=== PATIENT | male | born 1945 | race Caucasian/White ===

== ENCOUNTER → 2016-12-02 | Outpatient (CLI) | payer MEDICARE, BC ==
[~2016-12-02] MED LIST: AMLO10TA2 PO; ASPI-730 PO; AZIT250T PO; BENA10TA3 PO; CALC-1138 PO; CLOP75TA19 PO; FLUT16SP NAS; HYDR-2164 PO; HYDR-4246 PO; INSU100I21 SQ; INSU100V13 SQ; INSU100V20 SQ; IOHEXOL 300 MG/ML 75ml INJECTION ONE; METF-206 PO; NORMAL SALINE 100 ML ONE; NORT50CA PO; POTA10CA32 PO; RANI150T7 PO; SALINE FLUSH 10ml SYRINGE ONE; SILD100T PO; [UNRECOGNIZED DRUG - CODE] PO; [UNRECOGNIZED DRUG - CODE] SQ
[2016-12-02 13:10] LABS: BASOPHILS % (AUTO) 0.4 % (0-2); EOSINOPHILS # (AUTO) 0.2 T/MM3 (0-0.5); EOSINOPHILS % (AUTO) 1.4 % (0-4); HCT - HEMATOCRIT 45.2 % (41-53); HGB - HEMOGLOBIN 16.2 GM/DL (13.5-17.5); IMMATURE GRANULOCYTE # (AUTO) 0.04 T/MM3 (0.00-0.03); IMMATURE GRANULOCYTE % (AUTO) 0.4 % (0.0-0.5); LYMPHOCYTES # (AUTO) 2.9 T/MM3 (1-4.8); LYMPHOCYTES % (AUTO) 25.7 % (23-45); MEAN CORPUSCULAR HGB 31.8 UUG (26-34); MEAN CORPUSCULAR HGB CONC(MCHC 35.8 GM/DL (31-37); MEAN CORPUSCULAR VOLUME 88.8 UM3 (80-100); MEAN PLATELET VOLUME 10.6 UM3 (9.4-12.4); MONOCYTES # (AUTO) 1.1 T/MM3 (0-0.8); MONOCYTES % (AUTO) 9.8 % (0-9.0); NEUTROPHILS #(AUTO)-ABSOLUTE 6.9 T/MM3 (1.8-7.7); NEUTROPHILS % (AUTO) 62.3 % (33-66); RED BLOOD COUNT 5.09 M/MM3 (4.50-5.90); WBC - WHITE BLOOD COUNT 11.1 T/MM3 (4.5-11.0)
[2016-12-02 13:21] LABS: ALBUMIN/GLOBULIN RATIO 1.6 RATIO (1.1-2.2); ALKALINE PHOSPHATASE 62 U/L (38-126); ALT (SGPT) 31 U/L (21-72); ANION GAP 10 MEQ/L (5-15); AST (SGOT) 19 U/L (17-59); BUN/CREATININE RATIO 13 RATIO (6-26); CALCIUM 9.3 MG/DL (8.4-10.2); CHLORIDE 97 MEQ/L (98-107); CO2 - CARBON DIOXIDE 27 MEQ/L (22-30); CREATININE 0.7 MG/DL (0.8-1.5); GLOMERULAR FILTRATION RATE 111; GLUCOSE 239 MG/DL (75-110); POTASSIUM 4.2 MEQ/L (3.6-5); SODIUM 134 MEQ/L (134-144); TOTAL PROTEIN 6.5 G/DL (6.3-8.2)
--- NOTE | 2016-12-02 14:23 | DI ---
Indication: ITS.REASON: N40.1 BPH; R10.2 PELVIC PAIN PROCEDURE: US BLADDER: Encounter: Initial Comparison: CT abdomen and pelvis from today Technique: Grayscale and color Doppler sonographic imaging of the bladder was performed both before and after voiding. Findings/ Impression: The bladder appears sonographically normal without debris or mass. Prevoid bladder volume was 95.1 mL. Post void residual volume of 22.7 mL. Ureteral jets were not visible by ultrasound. .
--- NOTE | 2016-12-02 14:29 | DI ---
Indication: ITS.REASON: R10.2 PELVIC PAIN; N40.1 BPH PROCEDURE: CT ABD/PELVIS W/O CONTRAST: Encounter: Initial Comparison: None Technique: Axial CT images were performed through the abdomen and pelvis without intravenous contrast. Coronal and sagittal two-dimensional reformats. Automated Exposure Control and Iterative Reconstruction dose reducing techniques were utilized. Findings: 9 mm noncalcified nodule in the right lower lobe. The unenhanced contours of the liver are unremarkable. The gallbladder, spleen, pancreas and adrenal glands are within normal limits. The kidneys are normal. No renal or ureteral stone disease. The bladder is normal. Prostate and rectum are unremarkable. Moderate sized fat-containing left inguinal hernia extending into the left hemiscrotum. No free fluid. Sigmoid diverticulosis with some questionable mild stranding adjacent to the proximal sigmoid. No free air or abscess formation. No evidence of a bowel obstruction. Inflammation in the left abdominal subcutaneous fat could relate to injection granulomas. Bone windows show no lytic or blastic osseous lesions. Impression: 1. Subtle findings for possible early or mild sigmoid diverticulitis. 2. 9 mm right lower lobe pulmonary nodule. Recommend comparison with any available prior CT scans including the lung bases to evaluate for stability. If comparisons are unavailable follow-up noncontrast chest CT is recommended in three months to evaluate for stability. Alternatively PET/CT or biopsy could be performed. 3. Left inguinal hernia Findings were called to the ordering physician at 1425 on December 02, 2016. .
== END ==
LOC: IMA 12:50
PROVIDERS: ATTEND Family Medicine
DX: K40.90 Unilateral inguinal hernia, without obstruction or gangrene, not specified as recurrent (principal); R91.1 Solitary pulmonary nodule; R93.5 Abnormal findings on diagnostic imaging of other abdominal regions, including retroperitoneum; N40.1 Benign prostatic hyperplasia with lower urinary tract symptoms; R10.2 Pelvic and perineal pain
CPT/HCPCS: 36415; 74176; 76857; 80053; 82150; 85025; J7050; Q9967

== ENCOUNTER 2016-12-18 20:41 | Emergency (ER) | payer MEDICARE, BC ==
[~2016-12-18] VITALS: Ht 177.8 cm; Wt 121.7 kg
[~2016-12-18 20:41] MED LIST changes: -IOHEXOL 300 MG/ML 75ml INJECTION ONE; -NORMAL SALINE 100 ML ONE; -SALINE FLUSH 10ml SYRINGE ONE
--- OUTSIDE RECORDS SUMMARY | 2016-12-18 20:44 | XMS REPORT | Continuity of Care Document ---
Author Author [facility] Organization [facility] Address Unknown Phone Unavailable Support Name Relationship Address Phone TARIQ ALONSO MD Caregiver [address] [place] [address] Unavailable LUCIARAJESH Caregiver [address] [place] [address] Unavailable VICKERS JULIET Next Of Kin [address] [place] [address] Insurance Providers Guarantor Ej Mak Address [address] [place] [address] Email DENIED/NO TO PT PORT Payer Blue [employer] Select Plan 65 Policy Number [id number] Subscriber's Name jE Mak Relationship 18 Self Group Number [id number] Payer Medicare Policy Number [id number] Subscriber's Name Ej Mak Relationship 18 Self Advance Directives Directive Response Recorded Date/Time Advanced Directives Type None 02/03/16 6:53pm Chief Complaint and Reason for Visit Chief Complaint Ear Pain/Injury Reason for Visit Dizziness Ear pain Otitis externa Problems Active Problems Medical Problem Onset Date Status CAD (coronary artery disease) Unknown Chronic Chest pain Unknown Acute Chronic low back pain Unknown Acute Dehydration Unknown Acute Diabetes Unknown Chronic Dizziness Unknown Acute Ear pain Unknown Acute Hypertension Unknown Chronic Hyponatremia Unknown Acute NSTEMI (non-ST elevated myocardial infarction) Unknown Acute Orthostatic dizziness Unknown Acute Otitis externa Unknown Acute Surgical Problem Onset Date Status Status post coronary artery stent placement Unknown Acute Medications Current Home Medications Medication Dose Units Route Directions Days Qty Instructions Start Date Amlodipine Besylate 10 Mg Tablet 5 Mg Oral Daily 01/23/15 Aspirin 325 Mg Tablet 325 Mg Oral Daily 02/06/10 Azithromycin (Zithromax) 250 Mg Tablet 1 Tab Oral Daily 4 Tablet TAKE TWO ON DAY ONE, THEN ONE TAB DAILY UNTIL ALL TAKEN. 02/03/16 Benazepril Hcl 10 Mg Tablet 10 Mg Oral Daily 02/03/16 Calcium Citrate/Vitamin D3 (Calcium Citrate +Vit D3 Tablet) 1 Each Tablet 1 Tab Oral Daily 02/03/16 Clopidogrel Bisulfate (Plavix) 75 Mg Tablet 75 Mg Oral Daily 24/07 Fluticasone Propionate (Fluticasone Prop 50 Mcg/Actuation Nasal [place]) 120 [place]/16 G [place] 2 [place] Intranasal Daily 08/07/15 Hydrochlorothiazide 25 Mg Tablet 25 Mg Oral Daily 03/31/11 Hydrocodone/Acetaminophen ([place] 5-325 Tablet) 1 Each Tablet 1-2 Tab Oral Four Times Daily as needed for Pain 30 02/03/16 Insulin Aspart (Novolog) 100 U/Ml Vial 27 Units Sub-Q Give With Breakfast 02/06/10 Insulin Aspart (Novolog) 100 Unit/Ml Inj 25 Unit Sub-Q Give At Noon 12/11/15 Insulin Aspart (Novolog) 100 Unit/Ml Inj 20 Unit Sub-Q Give With Supper 12/11/15 Insulin Detemir (Levemir Flextouch) 100 Unit/1 Ml Insuln.pen 57 Unit Sub-Q Bedtime 08/07/15 Metformin Hcl 1,000 Mg Tablet 1,000 Mg Oral Daily 02/06/10 Niacin (Slo-Niacin) 500 Mg Tablet.er 500 Mg Oral Bedtime 02/03/16 Nortriptyline Hcl 50 Mg Capsule 50 Mg Oral Bedtime 01/23/15 Potassium Chloride 10 Meq Capsule.sa 20 Meq Oral Daily 02/06/10 Pramlintide Acetate (Symlinpen 120) 2,700 Mcg/2.7 Ml Pen.injctr 120 Mcg Sub- Q Three Times Daily With Meals 08/07/15 Ranitidine Hcl 150 Mg Tablet 150 Mg Oral Twice A Day Take 1 tablet, by mouth, 2 times a day. 02/03/16 Sildenafil Citrate (Viagra) 100 Mg Tablet 50 Mg Oral Daily as needed for Prn Orders 02/03/16 Past Home Medications Medication Directions Ordered Status Citalopram Hydrobromide (Celexa) 20 Mg Tablet, 20 Mg Oral Daily 02/06/10 Discontinued Hydrochlorothiazide 25 Mg Tablet, 25 Mg Oral Daily 10/01/08 Discontinued Insulin Glargine (Lantus) 100 U/Ml Vial, 47 U Sub-Q Bedtime 02/06/10 Discontinued Novalog , 6 Units Sub-Q Bedtime 10/01/08 Discontinued Novolin Nph , 28 Units Sub-Q Bedtime 10/01/08 Discontinued Social History Social History Problem Response Recorded Date/Time Onset Date Status Hx Substance Use No 02/03/2016 6:58pm Not Applicable Not Applicable Hx Alcohol Use No 02/03/2016 6:58pm Not Applicable Not Applicable Has the pt used tobacco in the last 12 months No 12/11/2015 6:58am Not Applicable Not Applicable Tobacco Usage none 04/22/2015 3:22pm Not Applicable Not Applicable Query Response Start Date Stop Date Smoking Status Never smoker Hospital Discharge Instructions No hospital discharge instructions. Plan of Care Discharge Date 02/03/16 7:20pm Disposition 01 DISCHARGED HOME, SELF-CARE Condition at Discharge Improved Instructions/Education Provided DI for Otitis Externa Prescriptions See Medication Section Referrals RAJESH MYERS DO Address: [facility] [address] [place] [address] Additional Instructions/Education Cortisporin Otic drop, 4 dropsin affected ear 4 times daily for 10 days Zithromax 250mg, one tab daily for four days, start tomorrow [place] 5mg, 1-2 every 6 hours for pain as needed. See your doctor next week for recheck or ENT referral. Care Plan and Goals Physician Care Plan Problem: Otitis externa, Dizziness (suspected AOM) Goal: Follow up with primary care provider Instructions: Take medications and follow care plan as discussed/written Cortisporin Otic drop, 4 dropsin affected ear 4 times daily for 10 days Zithromax 250mg, one tab daily for four days, start tomorrow [place] 5mg, 1-2 every 6 hours for pain as needed. See your doctor next week for recheck or ENT referral. Functional Status No functional status results. Allergies, Adverse Reactions, Alerts Allergen Type Severity Reaction Status Last Updated Codeine Adverse Reaction Unknown DOESN'T WORK Active 02/03/16 Amoxicillin Adverse Reaction Unknown N/V/D Active 02/03/16 Levofloxacin Allergy Unknown Active 02/03/16 STATIN Adverse Reaction Unknown Active 10/01/08 Immunizations Query Response on File Recorded Date/Time Hx Influenza Vaccination No 12/11/15 6:58am Hx Pneumococcal Vaccination Y "4 YRS AGO" 12/11/15 6:58am Hx Influenza Vaccination No 12/11/15 6:58am Vital Signs Acute Vital Signs Vital Response Date/Time Temperature (Fahrenheit) 98.1 deg F (96.8 - 99.1) 02/03/2016 7:20pm Temperature (Calculated Celsius) 36.94653 degrees C (36.0 - 37.3) 02/03/2016 7:20pm Temperature Source Oral 12/12/2015 7:25am Pulse Rate (adult) 84 bpm (60 - 100) 02/03/2016 7:20pm Respiratory Rate 18 breaths/min (10 - 20) 02/03/2016 7:20pm O2 Sat by Pulse Oximetry 95 % (90 - 100) 02/03/2016 7:20pm Oxygen Delivery Method Room Air 12/12/2015 7:25am Oxygen Delivery Method Room Air 12/11/2015 7:32am Blood Pressure 114/81 mm Hg 02/03/2016 7:20pm Blood Pressure Source Automatic Cuff 12/12/2015 7:25am Height (Feet) 5 feet 02/03/2016 5:38pm Height (Inches) 10.00 inches 02/03/2016 5:38pm Weight (Kilograms) 115.000 kg 02/03/2016 5:38pm Body Mass Index (BMI) 36.0 02/03/2016 5:38pm Results Laboratory Results Test Name Result Units Flags Reference Collection Date/Time Result Date/ Time Comments White Blood Count 10.5 T/MM3 4.5-11.0 12/12/2015 4:12/12/2015 5: 24am Red Blood Count 5.13 M/MM3 4.50-5.90 12/12/2015 4:12/12/2015 5: 24am Hemoglobin 15.6 GM/DL 13.5-17.5 12/12/2015 4:12/12/2015 5:24am Hematocrit 44.4 % 41-53 12/12/2015 4:12/12/2015 5:24am Mean Corpuscular Volume 86.5 UM3 80-100 12/12/2015 4:12/12/2015 5: 24am Mean Corpuscular Hemoglobin 30.4 UUG 26-34 12/12/2015 4:2015 5:24am Mean Corpuscular Hemoglobin Concent 35.1 GM/DL 31-37 12/12/2015 4:12/12/2015 5:24am RDW Standard Deviation 39.8 FL 36.9-50.2 12/12/2015 4:12/12/2015 5 :24am Platelet Count 229 T/MM3 130-400 12/12/2015 4:12/12/2015 5:24am Mean Platelet Volume 10.7 UM3 9.4-12.4 12/12/2015 4:12/12/2015 5: 24am Neutrophils (%) (Auto) 72.5 % H 33-66 12/12/2015 4:12/12/2015 5: 24am Lymphocytes (%) (Auto) 14.8 % L 23-45 12/12/2015 4:12/12/2015 5: 24am Monocytes (%) (Auto) 11.2 % H 0-9.0 12/12/2015 4:12/12/2015 5:24am Eosinophils (%) (Auto) 1.0 % 0-4 12/12/2015 4:12/12/2015 5:24am Basophils (%) (Auto) 0.2 % 0-2 12/12/2015 4:12/12/2015 5:24am Immature Granulocyte % (Auto) 0.3 % 0.0-0.5 12/12/2015 4:2015 5:24am Absolute Neutrophils (auto) 7.6 T/MM3 1.8-7.7 12/12/2015 4:2015 5:24am Absolute Lymphocytes (auto) 1.6 T/MM3 1-4.8 12/12/2015 4:2015 5:24am Absolute Monocytes (auto) 1.2 T/MM3 H 0-0.8 12/12/2015 4:2015 5:24am Absolute Eosinophils (auto) 0.1 T/MM3 0-0.5 12/12/2015 4:2015 5:24am Absolute Basophils (auto) 0.0 T/MM3 0-0.2 12/12/2015 4:12/12/2015 5:24am Absolute Immature Granulocyte (auto 0.03 T/MM3 0.00-0.03 12/12/2015 4: 12/12/2015 5:24am Icterus Index < 2 0-7 12/12/2015 4:12/12/2015 5:39am Chemistry Specimen Hemolysis < 15 0-25 12/12/2015 4:12/12/2015 5 :39am 0-25: Specimen Exhibited No Hemolysis. Turbidity < 20 0-20 12/12/2015 4:12/12/2015 5:39am Sodium Level 132 MEQ/L L 134-144 12/12/2015 4:12/12/2015 5:39am Potassium Level 4.4 MEQ/L 3.6-5 12/12/2015 4:12/12/2015 5:39am Chloride Level 99 MEQ/L 98-107 12/12/2015 4:12/12/2015 5:39am Carbon Dioxide Level 25 MEQ/L 22-30 12/12/2015 4:12/12/2015 5: 39am Anion Gap 8 MEQ/L 5-15 12/12/2015 4:12/12/2015 5:39am Blood Urea Nitrogen 12.0 MG/DL 9-20 12/12/2015 4:12/12/2015 5: 39am Creatinine 0.8 MG/DL 0.8-1.5 12/12/2015 4:12/12/2015 5:39am BUN/Creatinine Ratio 15 RATIO 6-26 12/12/2015 4:12/12/2015 5:39am Glomerular Filtration Rate Calc 96 12/12/2015 4:12/12/2015 5: 39am Glucose Level 232 MG/DL H 75-110 12/12/2015 4:12/12/2015 5:39am Calculated Osmolality 262 MOSM/KG 261-280 12/12/2015 4:12/12/2015 5:39am Calcium Level 8.9 MG/DL 8.4-10.2 12/12/2015 4:12/12/2015 5:39am Procedures Procedure Status Date Provider(s) ROUTINE VENIPUNCTURE Completed 12/11/15 ROUTINE VENIPUNCTURE Completed 12/11/15 METABOLIC PANEL TOTAL CA Completed 12/11/15 METABOLIC PANEL TOTAL CA Completed 12/11/15 COMPLETE CBC W/AUTO DIFF WBC Completed 12/11/15 COMPLETE CBC W/AUTO DIFF WBC Completed 12/11/15 ELECTROCARDIOGRAM TRACING Completed 12/11/15 L HRT ARTERY/VENTRICLE ANGIO Completed 12/11/15 VON VEE MD [id number] ITEM OR SERVICE Completed 12/11/15 [id number] ITEM OR SERVICE Completed 12/11/15 [id number] ITEM OR SERVICE Completed 12/11/15 [id number] ITEM OR SERVICE Completed 12/11/15 [id number] ITEM OR SERVICE Completed 12/11/15 [id number] ITEM OR SERVICE Completed 12/11/15 [id number] ITEM OR SERVICE Completed 12/11/15 [id number] ITEM OR SERVICE Completed 12/11/15 [id number] ITEM OR SERVICE Completed 12/11/15 [id number] ITEM OR SERVICE Completed 12/11/15 [id number] WIRE Completed 12/11/15 [id number] WIRE Completed 12/11/15 [id number] WIRE Completed 12/11/15 204846"STENT, COATED/COVERED, WITH DELIVERY SYSTEM" Completed 12/11/15 [id number]"CATHETER, GUIDING (MAY INCLUDE INFUSION/PERFUSION CAP Completed [id number] THAN PEEL-AWAY Completed 12/11/15 [facility] STENT&ANGIO,SNG Completed 12/11/15 VON VEE MD [id number]"INJECTION, HEPARIN SODIUM, PER 1000 UNITS" Completed 12/11/15 [id number]"INJECTION, HEPARIN SODIUM, PER 1000 UNITS" Completed 12/11/15 081111"INJECTION, INSULIN, PER 5 UNITS" Completed 12/11/15 [id number]"INJECTION, MIDAZOLAM HYDROCHLORIDE, PER 1 MG" Completed 12/11/15 [id number]"INJECTION, MIDAZOLAM HYDROCHLORIDE, PER 1 MG" Completed 12/11/15 214828"INJECTION, FENTANYL CITRATE, 0.1 MG" Completed 12/11/15 [id number] DRUGS Completed 12/11/15 175833"INFUSION, NORMAL SALINE SOLUTION , 1000 CC" Completed 12/11/15 [id number]"LOW OSMOLAR CONTRAST MATERIAL, 300-399 MG/ML IODINE C Completed [id number]"LOW OSMOLAR CONTRAST MATERIAL, 300-399 MG/ML IODINE C Completed [id number]"LOW OSMOLAR CONTRAST MATERIAL, 300-399 MG/ML IODINE C Completed Encounters Encounter Location Arrival/Admit Date Discharge/Depart Date Attending Provider Registered Emergency Room [facility] 02/03/16 5:35pm TARIQ ALONSO MD [facility] 12/11/15 5:57am 12/12/15 11:42am VON VEE MD Recent Diagnosis
--- OUTSIDE RECORDS SUMMARY | 2016-12-18 20:44 | XMS REPORT | Continuity of Care Document ---
Author Author [facility] Address Unknown Phone Unavailable Allergies Medications Problems Procedures Results Encounters ACCT No. Visit Date/Time Discharge Status Pt. Type Provider Facility Loc./Unit Complaint [id number] 02/26/2014 13:25:00 2013 23:59:59 CLS Outpatient
[2016-12-18 21:05] VITALS: Ht 177.8 cm; Wt 121.7 kg
[2016-12-18] MEDS ORDERED: ASPI81TA2 PO (21:53)
[2016-12-18] MEDS ORDERED: MULT-933 PO (21:53)
[2016-12-18] MEDS ORDERED: CHOL100055 (21:53)
[2016-12-18] MEDS ORDERED: ASCO-324 PO (21:53)
[2016-12-18] MEDS ORDERED: ORPHENADRINE 60mg/2ml INJECTION IV ONE ×2 (22:15)
--- OUTSIDE RECORDS SUMMARY | 2016-12-18 22:17 | XMS REPORT | Continuity of Care Document ---
Author Author [facility] Address Unknown Phone Unavailable Allergies Medications Problems Procedures Results Encounters ACCT No. Visit Date/Time Discharge Status Pt. Type Provider Facility Loc./Unit Complaint [id number] 02/26/2014 13:25:00 2013 23:59:59 CLS Outpatient
[2016-12-18] MEDS ORDERED: KETOROLAC 30mg/ml INJECTION IV ONE (22:30)
--- NOTE | 2016-12-18 22:32 | ERPDOC ---
Departure Disposition Decision Date: Dec 18, 2016 Disposition Decision Time: 23:41 Disposition: 01 DISCHARGED HOME, SELF-CARE Impression Impression Impression: Primary Impression: Chronic low back pain Back pain laterality: bilateral Sciatica presence: without sciatica Qualified Codes: G89.29 - Other chronic pain; M54.5 - Low back pain Additional Impression: MDD (major depressive disorder), recurrent episode Major depression episode severity: unspecified Qualified Codes: F33.9 - Major depressive disorder, recurrent, unspecified Severity: Moderate Condition: Improved Seen By: Physician only Referrals: RAJESH MYERS DO (Family) 1 Week Patient Instructions: Acute Low Back Pain (ED) Problems/Meds/Labs Reviewed?: Yes Medications reviewed and manag: Yes Additional Instructions: We have treated your back pain with a medicine similar to aleve and a muscle relaxer. To treat your pain you could take aleve as needed, along with tylenol and the muscle relaxer prescribed. Heat will also help. Follow up with your doctor in the next week. Follow up care ordered?: Yes Mental Status: Alert, Oriented Scripts Methocarbamol (Methocarbamol) 500 Mg Tablet 500 MG PO Q6HPRN for 30 Days, #30 TAB Prov: RADHA PEREZ DO 12/18/16 HPI - Back Pain General Chief Complaint: Lower Extremity Pain Stated Complaint: SEVERE BACK PAIN Time Seen by Provider: 21:43 Source: patient Exam Limitations: no limitations HPI - Back Pain Initial Comments 71[facility]. Pt has a long h/o LBP stemming from a service-related fall injury 4 decades ago. Pt has improved with pain meds, MRs, heat, and PT in the past. Recently, he has been sitting much longer and more frequently with his who was recently moved into a [facility]. Sx have gotten worse with increased sitting and decreased activity. No loss of b/b. Has felt like his legs were going to give way and c/o thigh weakness. Occurred At: home Onset/Timing: Gradual, Getting worse Duration: other Severity/Quality: severe, dullness Location: lumbar spine Radiation: upper legs Allergies: Coded Allergies: levofloxacin (Verified Allergy, Unknown, 12/18/16) amoxicillin (Unverified Adverse Reaction, Unknown, N/V/D, 12/18/16) codeine (Unverified Adverse Reaction, Unknown, DOESN'T WORK, 12/18/16) Uncoded Allergies: STATIN (Adverse Reaction, Unknown, 10/01/08) Past History Past Medical History Metabolic: diabetes Cardiac: CAD, other Respiratory: pneumonia Musculoskeletal: back pain Psychological: depression Surgical History General: other Cardiac: cardiac stent Family History Family PMH: FOUND: hypertension Vaccines Hx Influenza Vaccination: No Hx Pneumococcal Vaccination: Yes ("4 YRS AGO") Physical Exam General Vitals and Pain First Documented Vital Signs Date Time Temp Pulse Resp B/P Pulse Ox O2 Delivery O2 Flow Rate FiO2 12/18/16 21:05 98.2 87 18 148/67 93 Room Air Weight: Kilograms: 121.700 Height (feet): 5 Height (inches): 10.00 Triage Pain Scale: Progress Results/Orders Orders Procedure Category Date Status Time Lumbar Spine 2-3 Views RAD 12/18/16 Taken 22:02 Iv Lock (Ed Only) EDM 12/18/16 Transmitted 22:02 Orphenadrine (Norflex) PHA 12/18/16 Complete 22:15 Ketorolac (Toradol) PHA 12/18/16 Complete 22:30 Medications Current ED Medications Orphenadrine Citrate (Norflex) 60 mg O ONCE IV Last administered on 12/18/16 22:52; Start 12/18/16 at 22:15; Stop 12/18/16 at 22:16; Status DC Orphenadrine Citrate (Norflex) 60 mg O ONCE IV ; Start 12/18/16 at 22:15; Stop 12/18/16 at 22:16; Status Cancel Ketorolac Tromethamine (Toradol) 30 mg O ONCE IV Last administered on 22:52; Start 12/18/16 at 22:30; Stop 12/18/16 at 22:31; Status DC Progress Progress Marked improvement in LBP with NSAID, MR, and time. No acute findings on L- spine film. Discussed f/u needs for his depression and LBP. Pt voiced understanding of dx, tx, and prognosis. Xray Xray : Xray: L-Spine Interpretation: Abnormal (Partial loss of lordosis; no acute findings.), Interpreted by Me RADHA PEREZ DO Dec 18, 2016 22:32
[2016-12-18] MEDS ORDERED: METH500T6 PO (23:44)
[2016-12-18 23:45] VITALS: BP 139/65; PULSE 76; RESP 18; TEMP 98.2; O2SAT 93
--- NOTE | 2016-12-19 07:46 | DI ---
Indication: ITS.REASON: low back pain and leg weakness for two weeks PROCEDURE: LUMBAR SPINE 2-3 VIEWS: Encounter: Initial Comparison: CT lumbar spine dated March 05, 2015 Findings: Alignment is within normal limits. No acute fracture or subluxation. The vertebral body heights are maintained. Mild disk space narrowing at L2-L3 and L3-L4. Degenerative facet change at L5-S1. Impression: No acute fracture. .
== END 2016-12-18 23:45 | disposition home or self-care (01) ==
LOC: ED 20:41
DX: M54.5 Low back pain (principal); G89.29 Other chronic pain; F33.9 Major depressive disorder, recurrent, unspecified
CPT/HCPCS: 36000; 72100; 96374; 96375; 99284; J1885; J2360